=== PATIENT | female | born 1940 | race Caucasian/White ===

== ENCOUNTER → 2020-01-03 14:59 | Outpatient (CLI) | payer MEDICARE, SELFPAY ==
[2020-01-03 15:03] LABS: Bacteria 0 SEEN /hpf (None Seen); Mucous, Urine 0 SEEN /hpf (<or=2+); Red Blood Cells-Urine 0 SEEN /hpf (0-5)
[2020-01-03 17:33] LABS: Absolute Lymphocyte Count 1.96 X10^3/uL (0.83-4.51); Absolute Neutrophil Count 5.7 X10^3/uL (2.0-7.7); Basophil# 0.05 X10^3/uL; Basophil% 0.5 % (0-1); Eosinophil# 0.28 X10^3/uL; Hematocrit 32.6 % (37-47); Hemoglobin 9.4 g/dL (12.0-15.0); Lymphocyte # 1.96 X10^3/ul (4.0); Lymphocyte % 21.1 % (19-41); Mean Corp Hgb Conc 28.8 g/dL (32-36); Mean Corpuscular Hgb 26.6 pg (27.0-32.0); Mean Corpuscular Volume 92.4 fL (81-99); Monocyte# 1.18 X10^3/uL; Monocyte% 12.7 % (0-10); NRBC Flagged by Analyzer 0 % (0-5); Neutrophil # 5.74 X10^3/uL (2.7-7.7); Neutrophil % 61.7 % (47-70); Platelet Count 273 K/mm3 (150-450); RBC Distribution Width CV 14.6 % (11.6-14.6); RBC Distribution Width SD 48.8 fl (35.1-43.9); Red Blood Count 3.53 M/mm3 (4.2-5.4); White Blood Count 9.3 K/mm3 (4.4-11.0)
[2020-01-03 17:37] LABS: Color, Urine Yellow (Yellow); Glucose, Dipstick Normal (Normal); Ketone-Dipstick Negative (Negative); Leukocyte Esterase-Dipstick 100 /ul (Negative); Nitrite-Dipstick Negative (Negative); Occult Blood-Urine Negative /ul (Negative); Protein-Dipstick 15 mg/dl (Negative); Urine Clarity Clear (Clear); Urine Urobilinogen 1 mg/dl (Normal)
[2020-01-03 17:50] LABS: Vitamin D,25 Hydroxy 60.1 ng/mL
[2020-01-03 17:55] LABS: AST(SGOT) 15 U/L (15-37); Alanine Aminotransfer ALT/SGPT 12 U/L (13-56); Albumin, Serum 3.3 g/dL (3.2-5.0); Alkaline Phosphatase 110 U/L (45-117); Anion Gap 6 (5-15); BUN 23 mg/dL (7-18); BUN/Creat Ratio 17.4 RATIO (10-20); Calcium,Total 8.9 mg/dL (8.5-10.1); Chloride 109 mmol/L (98-107); Cholesterol 210 mg/dL (200); Creatinine, Serum 1.32 mg/dL (0.55-1.02); EST Glomerular Filtration Rate 41 mL/min (>60); Est Glom Filt Rate - Afr Amer 50 mL/min (>60); Globulin 3.2 g/dL (2.2-4.2); Glucose 82 mg/dL (74-106); High Density Lipoprotein 47 mg/dL; Potassium 4.1 mmol/L (3.5-5.1); Protein, Total 6.5 g/dL (6.4-8.2); Sodium Level 143 mmol/L (136-145); T4 Free Direct 1.19 ng/dL (0.76-1.46); Thyroid Stim Hormone (TSH) 9.12 uIU/mL (0.358-3.74); Triglycerides 240 mg/dL; Very Low Density Lipoprotein 48 mg/dL (5-40)
[2020-01-03 17:57] LABS: Microalbumin,Random Urine 67.6 mg/L (NO RANGE EST.)
[2020-01-03 18:29] LABS: Urine Bilirubin Dipstick 1 mg/dL (Negative)
[2020-01-03 18:31] LABS: Squamous Epithelial Cells - UA 0-5 SEEN /hpf (5-10); White Blood Cells 5-10 SEEN /hpf (0-5)
== END ==
PROVIDERS: PCP Family Medicine; Visit Provider Family Medicine
DX: I10 Essential (primary) hypertension (principal); E11.9 Type 2 diabetes mellitus without complications; E78.5 Hyperlipidemia, unspecified; E03.9 Hypothyroidism, unspecified; E55.9 Vitamin D deficiency, unspecified
CPT/HCPCS: 36415; 80053; 80061; 81001; 82043; 82306; 82570; 83036; 84439; 84443; 85025

== ENCOUNTER → 2020-01-09 10:45 | Outpatient (CLI) | payer MEDICARE, SELFPAY ==
[2020-01-09 12:38] LABS: Ferritin 9 ng/mL (8-252); Iron 33 ug/dL (50-170); Iron Binding Capacity,Total 349 ug/dL (250-450); PERCENT IRON SATURATION 9.5 % (15.0-55.0)
[2020-01-09 12:53] LABS: Vitamin B12 295 pg/mL (211-911)
[2020-01-10 16:20] LABS: Anti-Thyroglobulin AB < 1.0 IU/mL (0.0-0.9); Thyroglobulin, Serum Qt. 3.8 ng/mL (1.5-38.5); Thyroid Peroxidase AB < 9 IU/mL (0-34)
== END ==
PROVIDERS: PCP Family Medicine; Visit Provider Family Medicine
DX: D64.9 Anemia, unspecified (principal); R79.89 Other specified abnormal findings of blood chemistry
CPT/HCPCS: 36415; 82607; 82728; 82746; 83540; 83550; 84432; 86376; 86800

== ENCOUNTER → 2020-01-15 09:37 | Outpatient (CLI) | payer MEDICARE, SELFPAY ==
--- NOTE | 2020-01-15 09:54 | CDU_ITS ---
Reason For Study: Carotid stenosis Rt. Velocities/BP Lt. Velocities/BP Prox CCA 74.7/9.5 cm/sec. Prox CCA 79.1/17 cm/sec. Mid CCA 68.2/14.7 cm/sec. Mid CCA 70.4/16.3 cm/sec. Dist CCA 73.4/13.4 cm/sec. Dist CCA 63.4/12 cm/sec. Prox ICA 78.6/9.5 cm/sec. Prox ICA 53.2/17.3 cm/sec. Mid ICA 88.4/22.6 cm/sec. Mid ICA 92.6/22.3 cm/sec. Dist ICA 96.1/24 cm/sec. Dist ICA 108.3/24.3 cm/sec. Rt. ICA/CCA = 1.3. Lt. ICA/CCA = 1.5. Prox ECA 90.4/5.6 cm/sec. Prox ECA 94.9/7.7 cm/sec. Rt. Vert. 79.1/15.2 cm/sec. Lt. Vert. 36.6/10.2 cm/sec. Right Extracranial There is intimal thickening but no significant atherosclerotic plaque noted in the right common carotid artery. There is heterogeneous, irregular atherosclerotic plaque noted in the right internal carotid artery. There is intimal thickening but no significant atherosclerotic plaque noted in the right external carotid artery. Antegrade flow is noted in the right vertebral artery. Left Extracranial There is intimal thickening but no significant atherosclerotic plaque noted in the left common carotid artery. There is heterogeneous, irregular atherosclerotic plaque noted in the left internal carotid artery. There is heterogeneous, irregular atherosclerotic plaque noted in the left external carotid artery. Antegrade flow is noted in the left vertebral artery. Procedure Carotid Duplex 02324. The study was technically difficult. Exam performed in department. Interpretation Summary Mild (<50%) stenosis right extracranial internal carotid. Mild (<50%) stenosis left extracranial internal carotid. Flow within the vertebral arteries is antegrade bilaterally. Ordering Physician: Corey Pierce Referring Physician: Corey Pierce Performed By: Tomeka Ponce RVT
== END ==
PROVIDERS: PCP Family Medicine; Referring Provider Family Medicine; Visit Provider Family Medicine
DX: I65.23 Occlusion and stenosis of bilateral carotid arteries (principal)
CPT/HCPCS: 93880

== ENCOUNTER → 2020-01-25 11:58 | Outpatient (CLI) | payer MEDICARE, SELFPAY ==
[2020-01-25 15:22] LABS: Absolute Neutrophil Count 5.3 X10^3/uL (2.0-7.7); Basophil# 0.03 X10^3/uL; Basophil% 0.4 % (0-1); Eosinophil# 0.45 X10^3/uL; Eosinophils% 5.4 % (0-5); Hemoglobin 9.2 g/dL (12.0-15.0); Mean Corp Hgb Conc 28.8 g/dL (32-36); Mean Corpuscular Volume 93.8 fL (81-99); Monocyte# 1.01 X10^3/uL; Monocyte% 12.1 % (0-10); NRBC Flagged by Analyzer 0 % (0-5); Neutrophil # 5.32 X10^3/uL (2.7-7.7); Neutrophil % 63.6 % (47-70); Platelet Count 287 K/mm3 (150-450); RBC Distribution Width CV 15.2 % (11.6-14.6); RBC Distribution Width SD 51.8 fl (35.1-43.9); Red Blood Count 3.41 M/mm3 (4.2-5.4); White Blood Count 8.4 K/mm3 (4.4-11.0)
[2020-01-25 15:59] LABS: Ferritin 12 ng/mL (8-252); Iron 26 ug/dL (50-170); Iron Binding Capacity,Total 332 ug/dL (250-450)
== END ==
PROVIDERS: PCP Family Medicine; Referring Provider Family Medicine; Visit Provider Family Medicine
DX: D50.9 Iron deficiency anemia, unspecified (principal)
CPT/HCPCS: 36415; 82728; 83540; 83550; 85025

== ENCOUNTER → 2020-03-04 09:14 | Outpatient (CLI) | payer MEDICARE, SELFPAY ==
--- NOTE | 2020-03-04 09:21 | RAD_ITS ---
STUDY: X-RAY - ESOPHAGUS (BARIUM SWALLOW) WITH FLUOROSCOPY REASON FOR EXAM: Female, 79 years old. OCCASIONAL PROBLEMS SWALLOWING, NO OTHER COMPLAINTS, POOR HISTORIAN TECHNIQUE: 18 view(s) of the esophagus were obtained following swallowing of barium. FLUOROSCOPY TIME (if supplied): (0:36) minutes/seconds COMPARISON: None. FINDINGS: There is no demonstrated esophageal foreign body. Tertiary contractions of the mid esophagus. Moderate sized sliding hiatal hernia without gastroesophageal reflux. The patient ingested a 12 mm tablet of barium without any difficulty. There is atherosclerotic calcification of the aortic arch with tortuosity of the descending aorta. Normal visualized pulmonary parenchyma. Normal visualized osseous structures of the thorax. RAD/Esophagus Dual Contrast IMPRESSION: Moderate sized sliding hiatal hernia without gastroesophageal reflux. Tertiary contractions of the mid esophagus. Electronically Signed: Christophe Loya, at 14:59 EDT , Service support ,
== END ==
PROVIDERS: PCP Family Medicine; Referring Provider Family Medicine; Visit Provider Family Medicine
DX: R13.10 Dysphagia, unspecified (principal)
CPT/HCPCS: 74221

== ENCOUNTER → 2020-04-11 13:28 | Outpatient (CLI) | payer MEDICARE, SELFPAY ==
[2020-03-17 13:27] VITALS: BMI 43.5
--- NOTE | 2020-04-11 13:32 | CT_ITS ---
STUDY: CT SOFT TISSUE NECK WITH CONTRAST REASON FOR EXAM: Female, 80 years old. AIRWAY OBSTRUCTION/DIFFICULTY SWALLOWING. HTN-rx controlled. Diabetic-metformin RADIATION DOSAGE (If Supplied By Facility): CTDIvol = ( 17.17 ) mGy, DLP = ( 506.31 ) mGycm TECHNIQUE: The patient was scanned in a multi-detector CT scanner. High resolution transaxial imaging was performed following intravenous administration of IV 75mL Isovue-300. Sagittal and coronal images were reconstructed. Individualized dose optimization techniques were used for this CT. COMPARISON: None. FINDINGS: Normal bilateral parotid glands. Normal bilateral etl lead spaces. Normal bilateral parapharyngeal spaces. Normal bilateral carotid spaces. Normal bilateral sublingual and submandibular glands and spaces. Normal visualized nasopharynx. Normal retropharyngeal space. Normal perivertebral space. Normal visualized bilateral faucial tonsils. The visualized tongue, tongue base and oropharynx are normal. The visualized cervical lymph nodes (levels I-) are within normal size limits, and maintain normal morphology. There is no demonstrated solid or cystic mass lesion. There is no abnormal contrast enhancement. Normal epiglottis, bilateral vallecula and hypopharynx. The pre-epiglottic and paraglottic adipose spaces are normal. Normal visualized bilateral piriform sinuses, aryepiglottic folds, vocal cords, and arytenoid-cricoid articulations. Normal subglottic trachea. Normal bilateral lobes of the thyroid gland. Normal visualized pulmonary apices. Partial opacification of the left sphenoid sinus. There is degenerative changes of the cervical spine. Tight stenosis at the origin of the left internal carotid artery. 50% narrowing of the right carotid artery. CT/Soft Tissue Neck WITH Contrast IMPRESSION: There is no evidence of airway obstruction. No mass lesion is seen. Electronically Signed: Christophe Loya, at 14:28 EDT , Service support ,
== END ==
PROVIDERS: PCP Family Medicine; Referring Provider Family Medicine; Visit Provider Family Medicine
DX: J98.8 Other specified respiratory disorders (principal)
CPT/HCPCS: 70491; Q9967

== ENCOUNTER → 2020-07-25 10:23 | Outpatient (CLI) | payer MEDICARE, SELFPAY ==
[2020-03-17 13:27] VITALS: BMI 43.5
--- NOTE | 2020-07-25 10:27 | RAD_ITS ---
STUDY: X-RAY CHEST REASON FOR EXAM: Female, 80 years old. pneumonia -- wheezing TECHNIQUE: PA and lateral views of the chest. COMPARISON: 10/02/2012 FINDINGS: The lungs are clear and expanded. There is no demonstrated pleural abnormality. There is moderate cardiac enlargement. Moderate-sized hiatal hernia. Normal visualized pulmonary arteries. Normal visualized aortic arch and descending thoracic aorta. Normal visualized thoracic spine. Normal visualized ribs, clavicles, and shoulders. There is no demonstrated abnormality of the visualized soft tissue structures of the upper abdomen. RAD/Chest PA and Lateral IMPRESSION: No active disease. Electronically Signed: Evangelist Lucero MD at 17:34 EST Tel , Service support ,
[2020-07-25 15:35] LABS: Absolute Lymphocyte Count 1.73 X10^3/uL (0.83-4.51); Absolute Neutrophil Count 4.2 X10^3/uL (2.0-7.7); Basophil# 0.05 X10^3/uL; Basophil% 0.7 % (0-1); Eosinophil# 0.36 X10^3/uL; Eosinophils% 4.9 % (0-5); Hematocrit 33.8 % (37-47); Lymphocyte # 1.73 X10^3/ul (4.0); Lymphocyte % 23.5 % (19-41); Mean Corp Hgb Conc 29.6 g/dL (32-36); Mean Corpuscular Hgb 27.5 pg (27.0-32.0); Mean Corpuscular Volume 93.1 fL (81-99); Mean Platelet Vol. 11.4 fl (6.2-12.0); Monocyte# 0.97 X10^3/uL; Monocyte% 13.2 % (0-10); NRBC Flagged by Analyzer 0 % (0-5); Neutrophil # 4.21 X10^3/uL (2.7-7.7); Neutrophil % 57.3 % (47-70); Platelet Count 227 K/mm3 (150-450); RBC Distribution Width CV 17.2 % (11.6-14.6); RBC Distribution Width SD 58.1 fl (35.1-43.9); Red Blood Count 3.63 M/mm3 (4.2-5.4); White Blood Count 7.4 K/mm3 (4.4-11.0)
[2020-07-25 16:01] LABS: ALB/GLOB Ratio 1.2 RATIO (0.9-2.4); AST(SGOT) 7 U/L (15-37); Alanine Aminotransfer ALT/SGPT 16 U/L (13-56); Albumin, Serum 3.5 g/dL (3.2-5.0); Alkaline Phosphatase 100 U/L (45-117); Anion Gap 8 (5-15); BUN 26 mg/dL (7-18); BUN/Creat Ratio 20.2 RATIO (10-20); Chloride 112 mmol/L (98-107); Cholesterol 213 mg/dL (200); Creatinine, Serum 1.29 mg/dL (0.55-1.02); EST Glomerular Filtration Rate 42 mL/min (>60); Est Glom Filt Rate - Afr Amer 51 mL/min (>60); Ferritin 16 ng/mL (8-252); Globulin 2.9 g/dL (2.2-4.2); Glucose 117 mg/dL (74-106); High Density Lipoprotein 62 mg/dL; Iron 32 ug/dL (50-170); Iron Binding Capacity,Total 349 ug/dL (250-450); Potassium 4.3 mmol/L (3.5-5.1); Protein, Total 6.4 g/dL (6.4-8.2); Sodium Level 146 mmol/L (136-145); T4 Free Direct 1.13 ng/dL (0.76-1.46); Thyroid Stim Hormone (TSH) 7.49 uIU/mL (0.358-3.74); Triglycerides 170 mg/dL; Very Low Density Lipoprotein 34 mg/dL (5-40)
[2020-07-25 16:05] LABS: Vitamin D,25 Hydroxy 26.2 ng/mL
[2020-07-25 21:24] LABS: Hemoglobin A1c 6.9 % (3.8-5.6)
== END ==
PROVIDERS: PCP Family Medicine; Referring Provider Family Medicine; Visit Provider Family Medicine
DX: J18.9 Pneumonia, unspecified organism (principal); E03.9 Hypothyroidism, unspecified; E78.5 Hyperlipidemia, unspecified; D50.9 Iron deficiency anemia, unspecified; E11.9 Type 2 diabetes mellitus without complications; I10 Essential (primary) hypertension; E55.9 Vitamin D deficiency, unspecified
CPT/HCPCS: 36415; 71046; 80053; 80061; 82306; 82728; 83036; 83540; 83550; 84439; 84443; 85025

== ENCOUNTER → 2020-07-30 13:41 | Outpatient (CLI) | payer MEDICARE, SELFPAY ==
[2020-03-17 13:27] VITALS: BMI 43.5
[2020-07-30 16:08] LABS: Microalbumin,Random Urine 94.7 mg/L (NO RANGE EST.); Microalbumin:Creatinine Ratio 48.6 mg/g CRE (<30 mg/g CRE)
== END ==
PROVIDERS: PCP Family Medicine; Referring Provider Family Medicine; Visit Provider Family Medicine
DX: E11.9 Type 2 diabetes mellitus without complications (principal); D50.9 Iron deficiency anemia, unspecified; E78.5 Hyperlipidemia, unspecified; I10 Essential (primary) hypertension; E03.9 Hypothyroidism, unspecified
CPT/HCPCS: 82043; 82570

== ENCOUNTER → 2020-08-08 12:22 | Outpatient (CLI) | payer MEDICARE, SELFPAY ==
[2020-03-17 13:27] VITALS: BMI 43.5
--- NOTE | 2020-08-08 12:24 | ECHOCS_ITS ---
Reason For Study: PULMONARY HYPERTENSION Procedure This was a 2D Doppler, Color Flow transthoracic echocardiogram. The study was technically difficult. Contrast injection was performed. Exam performed in department. Left Ventricle Normal LV size. Left ventricular systolic function is normal. The estimated ejection fraction is 65 %. There is evidence of diastolic dysfunction. No regional wall motion abnormalities noted. Right Ventricle Normal RV size. Normal systolic function. Atria The left atrium is mildly enlarged. Normal right atrium. No doppler evidence for ASD. Mitral Valve There is mild mitral annular calcification. Mild focal mitral valve calcification of the anterior leaflet. The mitral valve chordae are thickened and/or calcified. Trivial mitral valve insufficiency. Tricuspid Valve Normal tricuspid valve. Trivial tricuspid valve insufficiency. Right ventricular systolic pressure estimated to be 40 mmHg. Aortic Valve The aortic valve is not well visualized. Mild focal aortic valve calcification. Pulmonic Valve The pulmonic valve is not well visualized. Trivial pulmonic valve insufficiency. Great Vessels The aortic root is not well visualized. Pericardium/Pleural No pericardial effusion. Medication 22 gauge I.V. with prn adaptor inserted into right arm. Diluted definity 2ml given slow IV push to enhance endocardial definition. MMode/2D Measurements & Calculations LVIDd: 4.0 cm IVSd: 1.2 cm LVOT diam: 2.0 cm LVIDs: 2.8 cm LVPWd: 1.2 cm RVDd: 3.2 cm FS: 29.8 % LVOT area: 3.1 cm2 Ao root diam: 2.8 cm LAV(MOD-bp): 40.8 ml LVAd ap4: 21.8 cm2 LAV(MOD-bp) Indexed: 20.4 ml/m2 EDV(MOD-sp4): 60.3 ml LAV(MOD-sp2): 38.1 ml EDV(sp4-el): 60.2 ml LAV(MOD-sp4): 41.6 ml LVAs ap4: 11.4 cm2 ESV(MOD-sp4): 20.1 ml ESV(sp4-el): 18.7 ml EF(MOD-sp4): 66.6 % EF(sp4-el): 68.9 % SV(MOD-sp4): 40.2 ml SV(sp4-el): 41.4 ml LA A4 area: 17.2 cm2 LA dimension(2D): 3.5 cm RA A4 area: 17.7 cm2 Time Measurements MV dec time: 0.31 sec Doppler Measurements & Calculations MV E max carlos: 93.7 cm/sec Lat Peak E' Carlos: 6.8 cm/sec Med Peak E' Carlos: 5.9 cm/sec MV A max carlos: 121.6 cm/sec E/E' lat: 13.8 E/E' med: 15.8 MV E/A: 0.77 Ao V2 max: 306.4 cm/sec LV V1 max: 100.1 cm/sec SV(LVOT): 82.0 ml Ao max P.6 mmHg LV V1 max P.0 mmHg Ao V2 mean: 239.1 cm/sec LV V1 mean P.2 mmHg Ao mean P.5 mmHg LV V1 mean: 69.8 cm/sec Ao V2 VTI: 79.2 cm LV V1 VTI: 26.8 cm BUCKY(I,D): 1.0 cm2 BUCKY(V,D): 1.0 cm2 PA V2 max: 100.9 cm/sec TR max carlos: 301.9 cm/sec TR max P.5 mmHg Interpretation Summary The study was technically difficult. Contrast injection was performed. Left ventricular systolic function is normal. The estimated ejection fraction is 65 %. The left atrium is mildly enlarged. There is mild mitral annular calcification. Mild focal mitral valve calcification of the anterior leaflet. The mitral valve chordae are thickened and/or calcified. Trivial mitral valve insufficiency. Trivial tricuspid valve insufficiency. Mild focal aortic valve calcification. Trivial pulmonic valve insufficiency. Right ventricular systolic pressure estimated to be 40 mmHg. There is evidence of diastolic dysfunction. Ordering Physician: Ananda Portillo Referring Physician: Ananda Portillo V Performed By: Marlyn Mckeon RDCS
== END ==
PROVIDERS: PCP Family Medicine; Referring Provider Internal Medicine Pulmonary Disease; Visit Provider Internal Medicine Pulmonary Disease
DX: I27.20 Pulmonary hypertension, unspecified (principal)
CPT/HCPCS: 93306; Q9957; A4216; C8929

== ENCOUNTER → 2021-01-12 14:46 | Outpatient (CLI) | payer MEDICARE, SELFPAY ==
[2020-03-17 13:27] VITALS: BMI 43.5
--- NOTE | 2021-01-12 14:49 | ECHOD_ITS ---
Reason For Study: AORTIC STENOSIS Procedure This was a 2D Doppler, Color Flow transthoracic echocardiogram. The study was technically difficult. Exam performed in department. Left Ventricle Normal LV size. Mild concentric left ventricular hypertrophy. Left ventricular systolic function is normal. The estimated ejection fraction is 60 %. Stage 1 diastolic dysfunction. No regional wall motion abnormalities noted. Right Ventricle Normal RV size. Normal systolic function. Atria Normal left atrium. Normal right atrium. Mitral Valve There is mild mitral annular calcification. Mild-Moderate (1-2+) eccentric mitral valve insufficiency. Tricuspid Valve Normal tricuspid valve. Mild (1+) tricuspid valve insufficiency. Pulmonary artery systolic pressure is 40 mmHg. Aortic Valve Trisinus/trileaflet aortic valve. Moderate focal aortic valve calcification. Peak aortic valve gradient 50 mmHg. Mean aortic valve gradient 29 mmHg. Moderate aortic stenosis. Pulmonic Valve The pulmonic valve is not well visualized. Great Vessels Normal aortic root. The pulmonary artery is normal size. Normal inferior vena cava. Pericardium/Pleural No pericardial effusion. MMode/2D Measurements & Calculations LVIDd: 4.7 cm IVSd: 1.3 cm LVOT diam: 1.8 cm LVIDs: 2.8 cm LVPWd: 1.5 cm LVOT area: 2.5 cm2 RVDd: 3.0 cm FS: 40.9 % Ao root diam: 3.2 cm LAV(MOD-bp): 77.2 ml Aortic Valve Planimetry: 0.86 cm2 LAV(MOD-bp) Indexed: 38.5 ml/m2 LAV(MOD-sp2): 79.0 ml LAV(MOD-sp4): 72.6 ml LA dimension(2D): 4.3 cm LA A4 area: 23.4 cm2 RA A4 area: 18.1 cm2 Time Measurements MV dec time: 0.27 sec Doppler Measurements & Calculations MV E max carlos: 125.1 cm/sec Lat Peak E' Carlos: 4.8 cm/sec Med Peak E' Carlos: 7.3 cm/sec MV A max carlos: 160.0 cm/sec E/E' lat: 26.2 E/E' med: 17.2 MV E/A: 0.78 MV V2 max: 158.9 cm/sec Ao V2 max: 351.5 cm/sec LV V1 max: 116.8 cm/sec MV max P.1 mmHg Ao max P.5 mmHg LV V1 max P.5 mmHg MV V2 mean: 106.4 cm/sec Ao V2 mean: 253.8 cm/sec LV V1 mean P.0 mmHg MV mean P.9 mmHg Ao mean P.6 mmHg LV V1 mean: 82.5 cm/sec MV V2 VTI: 39.4 cm Ao V2 VTI: 76.0 cm LV V1 VTI: 27.6 cm MVA(VTI): 1.8 cm2 BUCKY(I,D): 0.91 cm2 BUCKY(V,D): 0.84 cm2 SV(LVOT): 69.4 ml PA V2 max: 102.2 cm/sec TR max carlos: 304.7 cm/sec TR max P.1 mmHg MV P1/2t-pr_phl: 78.2 msec ECHO/Echo Complete Interpretation Summary Normal LV size. Mild concentric left ventricular hypertrophy. Left ventricular systolic function is normal. The estimated ejection fraction is 60 %. Stage 1 diastolic dysfunction. Mean aortic valve gradient 29 mmHg. Moderate aortic stenosis. Ordering Physician: Corey Pierce Referring Physician: Corey Pierce Performed By: Karina Parra, COLTON, RVT
== END ==
PROVIDERS: PCP Family Medicine; Referring Provider Family Medicine; Visit Provider Family Medicine
DX: I35.0 Nonrheumatic aortic (valve) stenosis (principal)
CPT/HCPCS: 93306

== ENCOUNTER → 2021-01-30 09:34 | Outpatient (CLI) | payer MEDICARE, SELFPAY ==
[2020-03-17 13:27] VITALS: BMI 43.5
[2021-01-30 12:00] LABS: Anion Gap 3 (5-15); BUN 28 mg/dL (7-18); BUN/Creat Ratio 23.1 RATIO (10-20); Calcium,Total 8.7 mg/dL (8.5-10.1); Chloride 106 mmol/L (98-107); Creatinine, Serum 1.21 mg/dL (0.55-1.02); EST Glomerular Filtration Rate 45 mL/min (>60); Est Glom Filt Rate - Afr Amer 55 mL/min (>60); Glucose 219 mg/dL (74-106); Potassium 4.2 mmol/L (3.5-5.1); Sodium Level 142 mmol/L (136-145)
== END ==
PROVIDERS: PCP Family Medicine; Referring Provider Family Medicine; Visit Provider Family Medicine
DX: N17.9 Acute kidney failure, unspecified (principal)
CPT/HCPCS: 36415; 80048

== ENCOUNTER → 2021-03-05 14:42 | Outpatient (CLI) | payer MEDICARE, SELFPAY ==
[2020-03-17 13:27] VITALS: BMI 43.5
[2021-03-05 18:43] LABS: Anion Gap 7 (5-15); BUN 30 mg/dL (7-18); BUN/Creat Ratio 23.4 RATIO (10-20); Calcium,Total 8.9 mg/dL (8.5-10.1); Chloride 103 mmol/L (98-107); Creatinine, Serum 1.28 mg/dL (0.55-1.02); EST Glomerular Filtration Rate 42 mL/min (>60); Est Glom Filt Rate - Afr Amer 51 mL/min (>60); Glucose 177 mg/dL (74-106); Potassium 4.2 mmol/L (3.5-5.1); Sodium Level 142 mmol/L (136-145)
== END ==
PROVIDERS: PCP Family Medicine; Visit Provider Family Medicine
DX: N17.9 Acute kidney failure, unspecified (principal)
CPT/HCPCS: 36415; 80048

== ENCOUNTER → 2021-03-06 09:47 | Outpatient (CLI) | payer MEDICARE, SELFPAY ==
[2020-03-17 13:27] VITALS: BMI 43.5
[2021-03-06 12:44] LABS: BNP,B-Type NATRIURETIC PEPTIDE 119.3 pg/mL (0-100)
== END ==
PROVIDERS: PCP Family Medicine; Referring Provider Internal Medicine Pulmonary Disease; Visit Provider Internal Medicine Pulmonary Disease
DX: R06.00 Dyspnea, unspecified (principal); I27.20 Pulmonary hypertension, unspecified; E87.6 Hypokalemia
CPT/HCPCS: 36415; 83880

== ENCOUNTER 2021-04-04 20:37 | Emergency (ER) | payer MEDICARE, SELFPAY ==
[2020-03-17 13:27] VITALS: BMI 43.5
[2021-04-04 20:38] VITALS: BP 159/67; PULSE 80; RESP 20; TEMP 36.7; O2SAT 98; BMI 47.2
[2021-04-04 20:47] VITALS: BP 159/67; PULSE 80; RESP 20; TEMP 36.7; O2SAT 98; BMI 47.2
[2021-04-04 20:50] VITALS: O2SAT 96
--- NOTE | 2021-04-04 21:15 | EKG12_ITS ---
Test Reason : DYSRHYTHMIA Blood Pressure : / mmHG Vent. Rate : 079 BPM Atrial Rate : 079 BPM P-R Int : 122 ms QRS Dur : 090 ms QT Int : 370 ms P-R-T Axes : 066 007 007 degrees QTc Int : 424 ms Normal sinus rhythm Normal ECG Confirmed by SABRINA WHATLEY, AYAKA ([id number]), commercial production editor ROBBIE CABRERA ([id number]) on 04/09/2021 1:02:51 PM Referred By: KEARA Confirmed By:AYAKA BENNETT MD
--- NOTE | 2021-04-04 21:16 | EDS_ITS ---
HPI History of Present Illness Chief Complaint: Shortness of Breath Informant: patient and family Narrative Narrative: Patient is a 81-year-old female with a past medical history of aortic stenosis, hypertension, diabetes who presents to the emergency department for phlegm in her throat. She has been feeling short of breath. She states that she does have a chronic cough that is no worse than normal. No fevers. She has swelling of her lower extremities which she thinks is worse than normal. Patient was actually discharged from outside hospital either yesterday or today. She does have breathing treatments at home which she does feel helps temporarily. She denies any abdominal pain nausea/vomiting or diarrhea. Patient has not been vaccinated for Covid. No known sick exposures. [facility] Medical History (Updated 04/04/21 @ 23:[address] Ike Henriquez ) Aortic stenosis Chronic obstructive lung disease DM type 2 (diabetes mellitus, type 2) Dyslipidemia Essential (primary) hypertension Hiatal hernia with gastroesophageal reflux Hypothyroidism Nephrolithiasis Home Medications citalopram 10 mg tablet ea PO 03/17/20 [History Last Taken Unknown] ferrous sulfate 325 mg (65 mg iron) tablet,delayed release ea PO 03/17/20 [History Last Taken Unknown] levothyroxine 100 mcg tablet tab PO 03/17/20 [History Last Taken Unknown] losartan 25 mg tablet ea PO 03/17/20 [History Last Taken Unknown] meclizine 25 mg tablet mg PO 03/17/20 [History Last Taken Unknown] metformin 1,000 mg tablet ea PO 03/17/20 [History Last Taken Unknown] mirabegron 25 mg tablet,extended release 24 hr 25 mg PO DAILY 03/17/20 [History Last Taken Unknown] omeprazole 40 mg capsule,delayed release ea PO 03/17/20 [History Last Taken Unknown] pravastatin 20 mg tablet ea PO 03/17/20 [History Last Taken Unknown] Allergy/AdvReac Type Severity Reaction Status Date / Time gabapentin AdvReac Mild swelling Verified 04/04/21 20:40 quinapril AdvReac Mild dizziness Verified 04/04/21 20:40 Family History (Updated 03/17/20 @ 13:27 by Bibiana Garland) Father Diabetes Mother Breast cancer Surgical History (Updated 03/17/20 @ 13:27 by Bibiana Garland) History of esophagogastroduodenoscopy (EGD) 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 right knee replacement Social History Smoking Status: Never smoker ROS ROS ED Constitutional Constitutional ED: Denies chills or fever(s) Eyes Eyes: Denies change in vision ENT ENT ED: Denies epistaxis or rhinorrhea Cardiovascular Cardiovascular: Denies chest pain or palpitations Respiratory/Chest Respiratory/Chest: Reports cough, dyspnea and sputum Gastrointestinal Gastrointestinal: Denies abdominal pain, nausea or vomiting Musculoskeletal Musculoskeletal: Denies back pain or neck pain Integumentary Denies rash Neurologic Neurologic: Denies dizziness, headache(s) or weakness EXAM Physical Exam Const Vital Signs: 04/04/21 20:38 04/04/21 20:47 04/04/21 20:50 Temperature 98.0 F 98.0 F Temperature Source Temporal Temporal Pulse Rate 80 80 Respiratory Rate 20 H 20 H Respiratory Effort Short of Breath Respiratory Depth Shallow Respiratory Pattern Irregular Blood Pressure 159/67 H 159/67 H Blood Pressure Mean 97 97 Pulse Ox 98 98 Oxygen Delivery Method Room Air Room Air Room Air Oxygen Flow Rate (L/min) 04/04/21 21:28 04/04/21 22:39 04/04/21 23:28 Temperature Temperature Source Pulse Rate 81 85 83 Respiratory Rate 18 18 20 H Respiratory Effort Short of Breath Respiratory Depth Normal Respiratory Pattern Normal Blood Pressure 164/70 H Blood Pressure Mean 101 Pulse Ox 98 96 97 Oxygen Delivery Method Nasal Cannula Room Air Oxygen Flow Rate (L/min) 2 Positive well nourished and well developed General Appearance ED: well developed and NAD HEENT Reports normocephalic, head/scalp atraumatic and moist mucous membranes Eyes PERRL and EOMs intact bilaterally Neck supple Chest Wall inspection of chest normal Resp normal respiratory effort Auscultation: wheezes; Negative for rales or rhonchi Cardio regular rate, regular rhythm and no murmurs GI normal to inspection, nondistended, normoactive bowel sounds and non-tender Palpation: soft; Negative for guarding or rebound tenderness present Extremity Extremity Narrative: Symmetrical edema of bilateral lower extremities. Diffuse tenderness. Neuro no sensory deficits noted Sensorium / Orientation: alert Motor Exam: strength 5/5 throughout Psych mental status grossly normal Skin no rashes or lesions noted MDM MDM MDM Narrative Medical decision making narrative: Patient presents to the emergency department for phlegm in her throat. She states that she cannot give it up or down. She was recently discharged from outside hospital for COPD exacerbation as well as choking on a piece of food. On arrival to the ED she is satting 98%. She is in no acute distress. She has a benign physical exam except for expiratory wheezes. Will check basic lab work as well as chest x-ray. She is given a DuoNeb for symptomatic treatment. X-ray is clear without any evidence of pneumonia. Lab work does show her to be mildly anemic. She was just recently evaluated for this at the outside hospital. No other significant acute abnormality. Her BNP is mildly elevated. Troponin well within normal limits. Glucose is high. She does not have a high white blood cell count. On reexamination she is feeling much better after the breathing treatment. Will recommend symptomatic treatment at home. She does have breathing treatments there. Return precautions are reviewed with her. She otherwise is to follow-up with her PCP. She understands and is agreeable to plan. All questions were answered Lab Data Labs: Laboratory Results - last 24 hr 04/04/21 04/04/21 04/04/21 20:52 20:52 20:52 WBC 8.5 RBC 3.00 L Hgb 8.6 L Hct 30.0 L MCV 100.0 H MCH 28.7 MCHC 28.7 L RDW Std Deviation 58.7 H RDW Coeff of Taylor 16.0 H Plt Count 316 MPV 10.7 Immature Gran % (Auto) 0.700 Neut % (Auto) 62.5 Lymph % (Auto) 18.2 L [place] % (Auto) 12.4 H Eos % (Auto) 5.6 H Baso % (Auto) 0.6 Absolute Neuts (auto) 5.3 Absolute Lymphs (auto) 1.54 Nucleated RBC % 0 Sodium 141 Potassium 4.6 Chloride 108 H Carbon Dioxide 29.0 Anion Gap 4 L BUN 26 H Creatinine 1.39 H Estim Creat Clear Calc 23.14 Est GFR (MDRD) Af Amer 47 L Est GFR (MDRD) Non-Af 39 L BUN/Creatinine Ratio 18.7 Glucose 223 H Calcium 8.6 Troponin I High Sens 8.6 B-Natriuretic Peptide 181.5 H Radiography Diagnostic Testing: Radiology Impression Chest X-Ray 04/04/21 21:58 IMPRESSION: No acute radiographic abnormalities. Cardiomegaly. Electronically Signed: Reggie Martinez MD at 22:49 EDT Tel , Service support , Discharge Plan Triage Chief Complaint: Shortness of Breath ED Provider: Ike Henriquez Dx/Rx/DC Orders Clinical Impression: Cough Instructions: ED Cough Chronic Uncertain Cause Adult Prescriptions: No Action citalopram 10 mg tablet PO RF: 0 ferrous sulfate 325 mg (65 mg iron) tablet,delayed release (DR/EC) PO RF: 0 losartan 25 mg tablet PO RF: 0 levothyroxine 100 mcg tablet PO RF: 0 metformin 1,000 mg tablet PO RF: 0 omeprazole 40 mg capsule,delayed release(DR/EC) PO RF: 0 pravastatin 20 mg tablet PO RF: 0 meclizine 25 mg tablet PO RF: 0 Myrbetriq 25 mg tablet extended release 24 hr 25 mg PO DAILY RF: 0 Primary Care Provider: Corey Pierce Referrals: Corey Pierce MD [Primary Care Provider] - 3-5 Days Disposition Disposition: Home, Self Care Discharge Date/Time: 04/04/21 23:29
[2021-04-04 21:23] LABS: Absolute Lymphocyte Count 1.54 X10^3/uL (0.83-4.51); Absolute Neutrophil Count 5.3 X10^3/uL (2.0-7.7); Basophil# 0.05 X10^3/uL; Basophil% 0.6 % (0-1); Eosinophil# 0.47 X10^3/uL; Eosinophils% 5.6 % (0-5); Hemoglobin 8.6 g/dL (12.0-15.0); Lymphocyte # 1.54 X10^3/ul (0.83-4.51); Lymphocyte % 18.2 % (19-41); Mean Corp Hgb Conc 28.7 g/dL (32-36); Mean Corpuscular Hgb 28.7 pg (27.0-32.0); Mean Platelet Vol. 10.7 fl (6.2-12.0); Monocyte# 1.05 X10^3/uL; Monocyte% 12.4 % (0-10); NRBC Flagged by Analyzer 0 % (0-5); Neutrophil # 5.29 X10^3/uL (2.7-7.7); Neutrophil % 62.5 % (47-70); Platelet Count 316 K/mm3 (150-450); RBC Distribution Width SD 58.7 fl (35.1-43.9); White Blood Count 8.5 K/mm3 (4.4-11.0)
[2021-04-04 21:28] VITALS: PULSE 81; RESP 18; RESP 20; O2SAT 98
[2021-04-04] MEDS: Ipratropium/Albuterol Sulfate 3 ML AMPUL.NEB INHALATION (21:28)
[2021-04-04 21:36] LABS: Anion Gap 4 (5-15); BUN 26 mg/dL (7-18); BUN/Creat Ratio 18.7 RATIO (10-20); Calcium,Total 8.6 mg/dL (8.5-10.1); Chloride 108 mmol/L (98-107); Creatinine, Serum 1.39 mg/dL (0.55-1.02); EST Glomerular Filtration Rate 39 mL/min (>60); Est Glom Filt Rate - Afr Amer 47 mL/min (>60); Estimated Creatinine Clearance 23.14 ml/min; Glucose 223 mg/dL (74-106); Potassium 4.6 mmol/L (3.5-5.1); Sodium Level 141 mmol/L (136-145); Troponin-I HS 8.6 pg/mL (3.0-53.7)
[2021-04-04 21:38] LABS: BNP,B-Type NATRIURETIC PEPTIDE 181.5 pg/mL (0-100)
--- NOTE | 2021-04-04 21:58 | RAD_ITS ---
INDICATION: SOB EXAMINATION/TECHNIQUE: X-RAY - XR Chest 1 View COMPARISON: 07/25/2020. FINDINGS: The lungs are clear. Tortuous and calcified thoracic aorta. The heart is mildly enlarged. No pleural effusion or pneumothorax. Degenerative changes of the thoracic spine. RAD/Chest 1 View (Portable) IMPRESSION: No acute radiographic abnormalities. Cardiomegaly. Electronically Signed: Reggie Martinez MD at 22:49 EDT Tel , Service support ,
[2021-04-04 22:39] VITALS: BP 164/70; PULSE 85; RESP 18; O2SAT 96
[2021-04-04 23:28] VITALS: PULSE 83; RESP 20; O2SAT 97
== END 2021-04-04 23:29 | disposition home or self-care (01) ==
PROVIDERS: Emergency Provider Emergency Medicine; PCP Family Medicine
DX: R05 Cough (principal)
CPT/HCPCS: 71045; 80048; 83880; 84484; 85025; 87426; 93005; 94640; 99251; 99284; A4216; G0463

== ENCOUNTER → 2021-04-08 11:05 | Outpatient (CLI) | payer MEDICARE, SELFPAY ==
[2021-04-04 20:47] VITALS: BMI 47.2
--- NOTE | 2021-04-08 11:06 | RAD_ITS ---
STUDY: X-RAY CHEST REASON FOR EXAM: Female, 81 years old. Wheezing. TECHNIQUE: Frontal and lateral views of the chest. COMPARISON: 04/04/2021. FINDINGS: Mild hyperexpansion unchanged. There is no demonstrated pleural abnormality. Stable marked cardiomegaly. Normal mediastinum and hilaria. Normal visualized pulmonary arteries. Aortic tortuosity with calcification unchanged. Normal visualized thoracic spine. Normal visualized ribs, clavicles, and shoulders. Hiatal hernia with air-fluid level. RAD/Chest PA and Lateral IMPRESSION: Cardiomegaly with mild hyperexpansion and hiatal hernia. No active or acute cardiopulmonary disease. Electronically Signed: Morro Whyte MD at 12:52 EDT , Service support ,
== END ==
PROVIDERS: PCP Family Medicine; Referring Provider Internal Medicine Pulmonary Disease; Visit Provider Internal Medicine Pulmonary Disease
DX: R06.2 Wheezing (principal)
CPT/HCPCS: 71046

== ENCOUNTER → 2021-05-01 12:53 | Outpatient (CLI) | payer MEDICARE, SELFPAY ==
[2020-03-17 13:27] VITALS: BMI 43.5
--- NOTE | 2021-05-01 12:59 | CT_ITS ---
STUDY: CT CHEST WITHOUT CONTRAST REASON FOR EXAM: Female, 81 years old. DYSPNEA, DYNAMIC CT TO EVALUATE Trachea, inspiration AND EXPIRATION RADIATION DOSAGE (If Supplied By Facility): CTDIvol = ( 17.80 ) mGy, DLP = ( 1183.19 ) mGycm TECHNIQUE: Transaxial imaging was performed without the administration of intravenous contrast material. Multiplanar coronal and sagittal images were reformatted. Individualized dose optimization techniques were used for this CT. COMPARISON: None. FINDINGS: There is evidence of a marked degree in decreased size of the trachea during expiration. Mild degree of increased markings at the lung bases suggestive of scarring. There is no demonstrated pleural abnormality. There are calcifications of the coronary arteries. There is mild cardiac enlargement. Normal mediastinum. Normal hilar regions. Normal unenhanced pulmonary arteries. There is atherosclerotic calcification of the aortic arch with tortuosity and elongation of the aortic arch and descending thoracic aorta. There are multi-level degenerative changes of the thoracic spine. Large hiatal hernia. CT/Chest without Contrast IMPRESSION: Decreased size of the trachea during the expiration imaging. Electronically Signed: Christophe Loya MD at 14:32 EDT , Service support ,
--- NOTE | 2021-05-01 13:16 | RAD_ITS ---
STUDY: X-RAY CHEST REASON FOR EXAM: Female, 81 years old. DYSPNEA TECHNIQUE: Frontal and lateral views of the chest COMPARISON: Same day chest CT FINDINGS: The lungs are clear and expanded. There is no demonstrated pleural abnormality. Heart size is normal and exaggerated due to presence of hiatal hernia. Normal visualized thoracic spine. Normal visualized ribs, clavicles, and shoulders. There is no demonstrated abnormality of the visualized soft tissue structures of the upper abdomen. RAD/Chest PA and Lateral IMPRESSION: No acute disease. Refer to chest CT for additional details. Electronically Signed: Delia Holman MD at 21:20 EDT Tel , Service support ,
== END ==
PROVIDERS: PCP Family Medicine; Referring Provider Internal Medicine Pulmonary Disease; Visit Provider Internal Medicine Pulmonary Disease
DX: R06.2 Wheezing (principal); R06.00 Dyspnea, unspecified
CPT/HCPCS: 71046; 71250

== ENCOUNTER 2021-06-04 14:30 | Outpatient (RCR) | payer MEDICARE, SELFPAY ==
[2021-05-28 13:53] VITALS: BP 156/70; PULSE 75; RESP 24; TEMP 36.1; BMI 47.6
--- NOTE | 2021-05-28 16:52 | HP.PCM_ITS ---
History of Present Illness Date of Service: 05/28/21 Chief Complaint: Nonhealing ulcer to left buttock History of Wound: This is an 81-year-old white female who presents to the office today with a nonhealing ulcer to her left buttock. She has a past medical history as listed above significant for hypertension, GERD, hypothyroidism, hyperlipidemia, type 2 diabetes mellitus, and COPD. The patient is with her daughter today and states that the ulcer has been present now for 2 months. She has been utilizing Neosporin but otherwise no other wound care. She was referred by her primary care. She does spend most of her time in a wheelchair or her reclining chair at home. She has home health that comes and assist her with her ADLs twice per week. She denies any systemic or localized signs of infection at this time. Past medical, family, and social history reviewed and not pertinent to the current visit and all other systems reviewed and negative with exception of those listed above. [facility] Medical History (Updated 05/28/21 @ 17:00 by Mitchell Crook NP, PROVIDER RELATIONS REP-C) Aortic stenosis Chronic obstructive lung disease DM type 2 (diabetes mellitus, type 2) Dyslipidemia Essential (primary) hypertension Hiatal hernia with gastroesophageal reflux Hypothyroidism Nephrolithiasis Pressure injury of buttock, stage 2 Home Medications citalopram 10 mg tablet ea PO 03/17/20 [History Last Taken Unknown] ferrous sulfate 325 mg (65 mg iron) tablet,delayed release ea PO 03/17/20 [History Last Taken Unknown] levothyroxine 100 mcg tablet tab PO 03/17/20 [History Last Taken Unknown] losartan 25 mg tablet ea PO 03/17/20 [History Last Taken Unknown] meclizine 25 mg tablet mg PO 03/17/20 [History Last Taken Unknown] metformin 1,000 mg tablet ea PO 03/17/20 [History Last Taken Unknown] mirabegron 25 mg tablet,extended release 24 hr 25 mg PO DAILY 03/17/20 [History Last Taken Unknown] omeprazole 40 mg capsule,delayed release ea PO 03/17/20 [History Last Taken Unknown] pravastatin 20 mg tablet ea PO 03/17/20 [History Last Taken Unknown] Allergy/AdvReac Type Severity Reaction Status Date / Time gabapentin AdvReac Mild swelling Verified 05/28/21 14:16 quinapril AdvReac Mild dizziness Verified 05/28/21 14:16 Family History (Updated 03/17/20 @ 13:27 by Bibiana Garland) Father Diabetes Mother Breast cancer Surgical History (Updated 03/17/20 @ 13:27 by Bibiana Garland) History of esophagogastroduodenoscopy (EGD) 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 right knee replacement Social History Smoking Status: Never smoker ROS Constitutional Constitutional: Reports systems reviewed and no addt'l complaints, except as documented Eyes Eyes: Reports systems reviewed and no addt'l complaints, except as documented ENT HEENT: Reports systems reviewed and no addt'l complaints, except as documented Cardiovascular Cardiovascular: Reports systems reviewed and no addt'l complaints, except as documented Respiratory/Chest Respiratory/Chest: Reports systems reviewed and no addt'l complaints, except as documented Gastrointestinal Gastrointestinal: Reports systems reviewed and no addt'l complaints, except as documented Genitourinary Genitourinary: Reports systems reviewed and no addt'l complaints, except as documented Musculoskeletal Musculoskeletal: Reports systems reviewed and no addt'l complaints, except as documented Integumentary Integumentary: Reports systems reviewed and no addt'l complaints, except as documented Neurologic Neurologic: Reports systems reviewed and no addt'l complaints, except as documented Psychiatric Psychiatric: Reports systems reviewed and no addt'l complaints, except as documented Endocrine Endocrinology: Reports systems reviewed and no addt'l complaints, except as documented Hematologic/Lymphatic Hematologic/Lymphatic: Reports systems reviewed and no addt'l complaints, except as documented Allergic/Immunologic Allergic/Immunologic: Reports systems reviewed and no addt'l complaints, except as documented Vital Signs Vital Signs Vital Signs: 05/28/21 13:53 Temperature 96.9 F L Temperature Source Temporal Pulse Rate 75 Respiratory Rate 24 H Blood Pressure 156/70 H Blood Pressure Mean 98 Blood Pressure Source Monitor Weight Weight: 243 lb 11.572 oz Body Mass Index (BMI) 47.6 Physical Exam Const alert, oriented x3, no apparent distress and well nourished General Appearance: cooperative Exam Limitations: no limitations HEENT normocephalic Head and Scalp: normal to inspection Mouth: oral and palatal mucosa normal Eyes General Eye: normal appearance of both eyes Resp normal respiratory effort, normal air movement and no use of accessory muscles Effort and Inspection: able to speak in complete sentences Auscultation: wheezes expiratory wheezes Cardio regular rate, regular rhythm, S1 normal heart sound, S2 normal heart sound, no murmurs and peripheral pulses 2+ throughout Palpation: normal PMI Rate: regular rate Heart Sounds: S1 normal and S2 normal GI normal to inspection, nondistended, normoactive bowel sounds, soft to palpation, non-tender and non-distended Palpation: soft Extremity normal to inspection and full ROM Extremity Narrative: 3+ pitting bilateral lower extremity edema General Extremity: normal exam except as noted Skin Wound Narrative: Stage II pressure injury to left buttock with adherent soft, no signs of infection at this time Neuro oriented x3 and moves all extremities Sensorium / Orientation: awake, alert, oriented to person, oriented to place and oriented to time Psych mental status grossly normal, thought process normal and denies hallucinations Appearance: grossly normal Attitude: calm Activity / Motor Behavior: appropriate eye contact Speech: normal speech Thought Process: normal thought process Thought Content: normal thought content Attention / Concentration: attention grossly intact Insight: insight good Judgement: judgement good Debridement Note Debridement Note Wound debrided: Stage II pressure injury of the left buttock Laterality: Left Wound Grade/Stage: Stage II Type of Debridement: Excisional debridement Anesthesia Used: 4% Lidocaine Solution Depth: in the subcutaneous layer Percentage of wound debrided: 100 Instrument Used: 3mm curette Tissue Removed: Slough devitalized tissue Severity: Fat Layer Exposed Amount of bleeding with debridement: Mild Bleeding Controlled with: Pressure Patient tolerated procedure: Patient tolerated procedure well Post-Debridement Measurements and Additional Note: Post-Debridement Measurements/Treatment - Nurse 1 - General Ulcer Assessment Start: 05/28/21 13:53 Freq: Status: Active Protocol: OWEN Activity Type Activity Date Activity User E-Sign Co-Sign Detail Recorded Client Recorded Date Recorded By Document 05/28/21 13:53 [id number] 05/28/21 14:10 DL 05/28/21 13:53 - Today's Visit Information Type of service Initial Visit Arrival Mode Wheelchair Transfer Assistance Manual Transfer Assist (Other) x2 Patient Identification Verified (Name & Yes ) Patient Requires Transmission-Based No Precautions Finger Stick Blood Sugar(mg/dl) (if not checked indicated): Blood Sugar Stated by Patient Height and Weight Height 5 ft Weight 243 lb 11.572 oz Weight in Pounds 243.7 lbs Body Mass Index (BMI) 47.6 BMI Classification Obese BSA - Sylvia 2.03 Vital Signs Temperature (97.8 F-99.1 F) 96.9 F L Temperature Source Temporal Pulse Rate (60-100) 75 Pulse Location Monitor Respiratory Rate (12-18) 24 H Respiratory rate source Observation Blood Pressure (90/60-120/80) 156/70 H Blood Pressure Mean 98 Source Monitor Pain Scale: 0-10 Numeric Is Patient Pain Free? Yes Communication Assessment Preferred language Lao Able to Read Yes Able to Write Yes Right Hearing Abillity Hard of Hearing Left Hearing Abillity Hard of Hearing Visual Assistive Devices Glasses Teaching Assessment Preferences Verbal,Written, Demonstration Barriers to Learning None Readiness To Learn Poor Willingness to Engage in Self Management Low Activies Readiness to Engage in Self Management Low Activities Anxiety Level Calm Cooperation Cooperative Perception Coherent Interest in Health Problem Uninterested Education Importance Acknowledges Need Does Patient Smoke tobacco or other No substances Smoking Status Never smoker Is Patient Diabetic Yes Functional Assessment Recent Decline in Ability to Perform Ambulation, Bathing,Eating/ Feeding,Lower Body Dressing, Toileting,Upper Body Dressing Assistive Device With Patient Yes List Device(s) with Patient wc WC - Nurse 1 - General Ulcer Measurement Start: 05/28/21 13:53 Freq: Status: Active Protocol: Activity Type Activity Date Activity User E-Sign Co-Sign Detail Recorded Client Recorded Date Recorded By Document 05/28/21 13:53 DL [id number] 05/28/21 14:10 DL 05/28/21 13:53 Wound Center Nurse 1 #1 L Buttocks -Current Size (cm) - Length 0.5 -Current Size (cm) - Width 0.5 -Current Size (cm) - Depth 0.2 -Total Square Cm 0.25 -Photo Taken Yes -Classification - Thickness Full Thickness without Exposed Support Structure -Exudate Amt None Present -Wound Margin Distinct, Outline Attached -Granulation Amt Large (67-100%) -Granulation Quality Pale -Necrosis Amt None Present (0 %) -Structure Exposed N/A -Texture (Natasha-wound Skin Appearance) Scarring -Moisture (Natasha-wound Skin Appearance) No Abnormality -Color (Natasha-wound Skin Appearance) No Abnormality -Temperature (Natasha-wound Skin No Abnormality Appearance) (Pt Warm) -Tenderness on Palpation (Natasha-wound No Skin Appearance) -Foul Odor after Cleansing No -Anesthetic Used 5% Lidocaine Gel WC - Nurse 2 - General Ulcer CM Notes Start: 05/28/21 13:53 Freq: Status: Active Protocol: Activity Type Activity Date Activity User E-Sign Co-Sign Detail Recorded Client Recorded Date Recorded By Document 05/28/21 14:37 MW [id number] 05/28/21 14:43 MW 05/28/21 14:37 Wound Center Nurse 2 -Time 14:39 -Correct Patient Yes -Correct Side, Site, Position Yes -Correct Procedure Yes -Procedure Performed Yes -Type of Procedure Debridement -Clinical Debridement Subcutaneous -Tissue Removed Subcutaneous -Post Debridement (cm) - Length 0.5 -Post Debridement (cm) - Width 0.5 -Post Debridement (cm) - Depth 0.1 -Total Square (Post) (cm) 0.25 -Area of Debridement (cm) - Length 0.5 -Area of Debridement (cm) - Width 0.5 -Total Square (Area) (cm) 0.25 -Tunneling No -Undermining/Tunneling No -Circular Undermining No -Wound/Ulcer Outcome Not Healed -Ulcer Cleansing Rinsed/ Irrigated with Saline -Foul Odor after Cleansing No -Bioengineered Tissue No -Bleeding Controlled with Pressure -Offloading No -Treatment Response Procedure Tolerated Well -Debridement - Subq, 1st 20sq cm Yes Pain Scale: 0-10 Numeric Is Patient Pain Free? Yes Charges/Coding Visit Charges Office Visits / Consults: 25308 OV L3 Est Procedures Integumentary [id number]: [id number] Yeny subq tissue 20 sq cm/< Assessment/Plan Assessment/Plan (1) Pressure injury of buttock, stage 2: CODE(S): L89.302 - Pressure ulcer of unspecified buttock, stage 2 (2) Hypothyroidism: CODE(S): E03.9 - Hypothyroidism, unspecified (3) Essential (primary) hypertension: CODE(S): I10 - Essential (primary) hypertension (4) Dyslipidemia: CODE(S): E78.5 - Hyperlipidemia, unspecified (5) DM type 2 (diabetes mellitus, type 2): CODE(S): E11.9 - Type 2 diabetes mellitus without complications (6) Chronic obstructive lung disease: CODE(S): J44.9 - Chronic obstructive pulmonary disease, unspecified PLAN: Debridement performed today in clinic as annotated above. Anai and foam dressing applied. At home wound-care instructions: Daily application of moistened Anai cover with foam dressing, Change dressing once daily or more frequently as needed due to contamination. Wash wounds daily with antibacterial soap and water, rinse and dry thoroughly before each dressing change. Did discussed with patient importance of offloading and a gel cushion was ordered for her wheelchair and discussed offloading while up in her reclining chair at home. Compression: Not indicated Off-loading: The patient was instructed to avoid pressure and friction on the affected areas. Reposition every 2 hours at minimum. Avoid prolonged standing and/or dangling of legs. When seated, feet should be elevated at chest level. Frequent ambulation is encouraged. Diet: Patient encouraged to increase protein intake while taking caution to avoid high carbohydrate and/or sugar intake. Labs/cultures/imaging: Cultures ordered and collected today. Routine baseline lab work ordered. Vascular studies ordered. Follow-up: Return to clinic in 1 week for re-evaluation. Return sooner or report to the emergency room should symptoms worsen, or new symptoms arise. This note was generated with [employer] dictation software. It may contain incorrect words, spelling, and punctuation that were not noted in checking the note before signing. I have spent 35 minutes today reviewing labs, records, and history. Time includes coordinating care, interpretation of tests, and counseling the patient/family. This also includes time I spent with the patient for exam, treatment plan, and education as well as documenting clinical information in the electronic health record.
[2021-06-04 14:15] VITALS: BP 160/67; PULSE 84; RESP 20; TEMP 36.4; BMI 47.6
--- NOTE | 2021-06-04 17:16 | PCM.WC.PN ---
History of Present Illness Date of Service: 06/04/21 Chief Complaint: Nonhealing ulcer to left buttock History of Wound: This is an 81-year-old white female who presents to the office today with a nonhealing ulcer to her left buttock. She has a past medical history as listed above significant for hypertension, GERD, hypothyroidism, hyperlipidemia, type 2 diabetes mellitus, and COPD. The patient is with her daughter today and states that the ulcer has been present now for 2 months. She has been utilizing Neosporin but otherwise no other wound care. She was referred by her primary care. She does spend most of her time in a wheelchair or her reclining chair at home. She has home health that comes and assist her with her ADLs twice per week. She denies any systemic or localized signs of infection at this time. Past medical, family, and social history reviewed and not pertinent to the current visit and all other systems reviewed and negative with exception of those listed above. Progress of Wound: Ulcer to left buttock is now healed without any signs of infection at this time. Patient does have gel cushion ordered as well. Objective Data Objective Data Vital Signs: Vital Signs Temp Pulse Resp BP 97.5 F L 84 20 H 160/67 H 06/04/21 14:15 06/04/21 14:15 06/04/21 14:15 06/04/21 14:15 Oxygen Delivery Method Room Air Weight: 243 lb 11.572 oz Body Mass Index (BMI) 47.6 Charges/Coding Visit Charges Office Visits / Consults: 13406 OV L3 Est Physical Exam Const alert, oriented x3, no apparent distress and well nourished General Appearance: cooperative Exam Limitations: no limitations HEENT normocephalic Head and Scalp: normal to inspection Mouth: oral and palatal mucosa normal Eyes General Eye: normal appearance of both eyes Resp normal respiratory effort, normal air movement and no use of accessory muscles Effort and Inspection: able to speak in complete sentences Auscultation: wheezes expiratory wheezes Cardio regular rate, regular rhythm, S1 normal heart sound, S2 normal heart sound, no murmurs and peripheral pulses 2+ throughout Palpation: normal PMI Rate: regular rate Heart Sounds: S1 normal and S2 normal GI normal to inspection, nondistended, normoactive bowel sounds, soft to palpation, non-tender and non-distended Palpation: soft Extremity normal to inspection and full ROM Extremity Narrative: 3+ pitting bilateral lower extremity edema General Extremity: normal exam except as noted Skin Wound Narrative: Stage II pressure injury to left buttock healed without any signs of infection at this time Neuro oriented x3 and moves all extremities Sensorium / Orientation: awake, alert, oriented to person, oriented to place and oriented to time Psych mental status grossly normal, thought process normal and denies hallucinations Appearance: grossly normal Attitude: calm Activity / Motor Behavior: appropriate eye contact Speech: normal speech Thought Process: normal thought process Thought Content: normal thought content Attention / Concentration: attention grossly intact Insight: insight good Judgement: judgement good Debridement Note Debridement Note No debridement was completed: No debridement was completed today Assessment/Plan Assessment/Plan (1) Pressure injury of buttock, stage 2: CODE(S): L89.302 - Pressure ulcer of unspecified buttock, stage 2 (2) Hypothyroidism: CODE(S): E03.9 - Hypothyroidism, unspecified (3) Essential (primary) hypertension: CODE(S): I10 - Essential (primary) hypertension (4) Dyslipidemia: CODE(S): E78.5 - Hyperlipidemia, unspecified (5) DM type 2 (diabetes mellitus, type 2): CODE(S): E11.9 - Type 2 diabetes mellitus without complications (6) Chronic obstructive lung disease: CODE(S): J44.9 - Chronic obstructive pulmonary disease, unspecified PLAN: Site is now healed without any signs of infection at this time At home wound-care instructions: Daily application of Adaptic cover with foam dressing for wound protection for 1 week, Did discussed with patient importance of offloading and a gel cushion was ordered for her wheelchair and discussed offloading while up in her reclining chair at home. Compression: Not indicated Off-loading: The patient was instructed to avoid pressure and friction on the affected areas. Reposition every 2 hours at minimum. Avoid prolonged standing and/or dangling of legs. When seated, feet should be elevated at chest level. Frequent ambulation is encouraged. Diet: Patient encouraged to increase protein intake while taking caution to avoid high carbohydrate and/or sugar intake. Labs/cultures/imaging: Cultures ordered and collected prior negative. Follow-up: Patient will be discharged from the wound healing center today after wound is healed without any signs of infection at this time. Return in the future if new wounds occur. This note was generated with [employer] dictation software. It may contain incorrect words, spelling, and punctuation that were not noted in checking the note before signing. I have spent 35 minutes today reviewing labs, records, and history. Time includes coordinating care, interpretation of tests, and counseling the patient/family. This also includes time I spent with the patient for exam, treatment plan, and education as well as documenting clinical information in the electronic health record.
== END 2021-06-04 15:02 | disposition home or self-care (01) ==
LOC: WC 14:30
PROVIDERS: PCP Family Medicine; Visit Provider Nurse Practitioner Family
DX: E11.622 Type 2 diabetes mellitus with other skin ulcer (principal); K21.9 Gastro-esophageal reflux disease without esophagitis; E78.5 Hyperlipidemia, unspecified; I10 Essential (primary) hypertension; J44.9 Chronic obstructive pulmonary disease, unspecified; E03.9 Hypothyroidism, unspecified; L89.322 Pressure ulcer of left buttock, stage 2; Z79.84 Long term (current) use of oral hypoglycemic drugs; Z79.899 Other long term (current) drug therapy
CPT/HCPCS: 11042; 99213; G0463

== ENCOUNTER → 2021-06-18 20:00 | Outpatient (CLI) | payer MEDICARE, SELFPAY | PROVIDERS: PCP Family Medicine; Referring Provider Internal Medicine Pulmonary Disease; Visit Provider Internal Medicine Pulmonary Disease | DX: G47.33 Obstructive sleep apnea (adult) (pediatric) (principal) | CPT/HCPCS: 95811 ==

== ENCOUNTER → 2021-07-23 16:54 | Outpatient (CLI) | payer MEDICARE, SELFPAY ==
[2021-07-23 17:41] LABS: Absolute Lymphocyte Count 1.24 X10^3/uL (0.83-4.51); Basophil# 0.03 X10^3/uL; Basophil% 0.3 % (0-1); Eosinophil# 0.13 X10^3/uL; Eosinophils% 1.2 % (0-5); Hematocrit 30.6 % (37-47); Hemoglobin 9.2 g/dL (12.0-15.0); Lymphocyte # 1.24 X10^3/ul (0.83-4.51); Lymphocyte % 11.2 % (19-41); Mean Corp Hgb Conc 30.1 g/dL (32-36); Mean Corpuscular Hgb 28.6 pg (27.0-32.0); Mean Platelet Vol. 10.9 fl (6.2-12.0); Monocyte# 1.27 X10^3/uL; Monocyte% 11.5 % (0-10); NRBC Flagged by Analyzer 0 % (0-5); Neutrophil # 8.02 X10^3/uL (2.7-7.7); Neutrophil % 72.5 % (47-70); Platelet Count 305 K/mm3 (150-450); RBC Distribution Width CV 14.4 % (11.6-14.6); RBC Distribution Width SD 48.9 fl (35.1-43.9); Red Blood Count 3.22 M/mm3 (4.2-5.4); White Blood Count 11.1 K/mm3 (4.4-11.0)
[2021-07-23 18:58] LABS: ALB/GLOB Ratio 0.8 RATIO (0.9-2.4); AST(SGOT) 10 U/L (15-37); Alanine Aminotransfer ALT/SGPT 17 U/L (13-56); Albumin, Serum 2.9 g/dL (3.2-5.0); Alkaline Phosphatase 102 U/L (45-117); Anion Gap 5 (5-15); BUN 31 mg/dL (7-18); BUN/Creat Ratio 23.5 RATIO (10-20); Calcium,Total 8.9 mg/dL (8.5-10.1); Chloride 98 mmol/L (98-107); Cholesterol 162 mg/dL (200); Creatinine, Serum 1.32 mg/dL (0.55-1.02); EST Glomerular Filtration Rate 41 mL/min (>60); Est Glom Filt Rate - Afr Amer 49 mL/min (>60); Ferritin 26 ng/mL (8-252); Globulin 3.5 g/dL (2.2-4.2); Glucose 230 mg/dL (74-106); High Density Lipoprotein 55 mg/dL; Iron 45 ug/dL (50-170); Iron Binding Capacity,Total 352 ug/dL (250-450); Potassium 3.6 mmol/L (3.5-5.1); Protein, Total 6.4 g/dL (6.4-8.2); Sodium Level 139 mmol/L (136-145); T4 Free Direct 1.37 ng/dL (0.76-1.46); Thyroid Stim Hormone (TSH) 5.46 uIU/mL (0.358-3.74); Triglycerides 185 mg/dL; Very Low Density Lipoprotein 37 mg/dL (5-40)
== END ==
PROVIDERS: PCP Family Medicine; Referring Provider Family Medicine; Visit Provider Family Medicine
DX: D50.9 Iron deficiency anemia, unspecified (principal); I10 Essential (primary) hypertension; E55.9 Vitamin D deficiency, unspecified; E03.9 Hypothyroidism, unspecified
CPT/HCPCS: 36415; 80053; 80061; 82306; 82728; 83540; 83550; 84439; 84443; 85025